=== PATIENT | male | born 1990 | race Caucasian/White ===

== ENCOUNTER 2017-03-30 12:21 | Emergency (ER) | payer MEDICAID ==
[~2017-03-30] VITALS: Ht 180.3 cm; Wt 73.9 kg
[2017-03-30 12:30] VITALS: BP_SYST 120
== END 2017-03-30 13:28 | disposition home or self-care (01) ==
LOC: SED 12:21
DX: S20.211A Contusion of right front wall of thorax, initial encounter (principal); W50.0XXA Accidental hit or strike by another person, initial encounter; Y93.71 Activity, boxing; Y92.89 Other specified places as the place of occurrence of the external cause; Y99.8 Other external cause status
CPT/HCPCS: 71010; 99283